=== PATIENT | female | born 1935 | race Caucasian/White ===

== ENCOUNTER → 2019-12-08 10:21 | Outpatient (CLI) | payer MEDICARE, SELFPAY ==
--- NOTE | ~2019-12-08 | XR_ITS ---
EXAMINATION: XR chest 2V 12/08/2019 10:37 INDICATION: Chest pain PROCEDURE: 2 view chest COMPARISON: Comparison to multiple prior studies sequentially, with oldest reviewed study dated 05/2009. FINDINGS: The lungs are clear. There is apical pleural thickening/scarring. The cardiomediastinal mckay houette is within normal limits. There are no pleural effusions. There is no pneumothorax suspected . IMPRESSION: 1: NO ACUTE CARDIOPULMONARY DISEASE. Reviewed, dictated and finalized at location B. OS CONSULTANT
== END ==
PROVIDERS: PCP Family Medicine; Visit Provider Family Medicine
DX: R07.89 Other chest pain (principal)
CPT/HCPCS: 71046

== ENCOUNTER 2019-12-08 10:46 | Outpatient (CLI) | payer MEDICARE, SELFPAY ==
--- NOTE | 2019-12-08 10:57 | ECG_ITS ---
Measurements Intervals [place] Rate: 64 P: 76 MI: 197 QRS: 60 QRSD: 110 T: 24 QT: 418 QTc: 432 Interpretive Statements SINUS RHYTHM INCOMPLETE RIGHT BUNDLE BRANCH BLOCK BASELINE ARTIFACT- I, II, III, AVR, V4-V6 BORDERLINE ECG Electronically Signed On 12-08-2019 11:11:20 PERFECT BINDER OPERATOR by Christian Thomas D.O.
== END 2019-12-08 10:47 | disposition home or self-care (01) ==
LOC: ANHCARD 10:50
PROVIDERS: PCP Family Medicine; Visit Provider Family Medicine
DX: R07.89 Other chest pain (principal)
CPT/HCPCS: 93005

== ENCOUNTER → 2021-08-01 10:47 | Outpatient (CLI) | payer MEDICARE, SELFPAY ==
--- NOTE | ~2021-08-01 | XR_ITS ---
EXAMINATION: XR knee RT 3V DATE: 08/01/2021 11:03 INDICATION: Right knee pain TECHNIQUE: Three views of the right knee were obtained. COMPARISON: None. FINDINGS: Alignment is normal. No fracture or osteochondral lesion. There is mild tricompartmental os teoarthritis characterized by tiny marginal osteophytes. There is calcification of the menisci. Soft tissues are unremarkable. IMPRESSION: 1. Chondrocalcinosis without acute osseous abnormality. Reviewed, dictated and finalized at location A.
== END ==
PROVIDERS: PCP Family Medicine; Visit Provider Physician Assistant
DX: M25.561 Pain in right knee (principal); M11.261 Other chondrocalcinosis, right knee
CPT/HCPCS: 73562

== ENCOUNTER 2021-08-23 09:46 | Outpatient (CLI) | payer MEDICARE, SELFPAY ==
--- NOTE | ~2021-08-23 | CT_ITS ---
EXAMINATION: CTA chest DATE: 08/23/2021 10:32 INDICATION: Atherosclerosis of aorta TECHNIQUE: Computed tomography angiography (CTA) of the chest was performed with 100 mL Omnipaque-350 intravenous contrast timed to evaluate the pulmonary arteries. Coronal maximum intensity projection 3D-reconstructions were created by the technologist. Automated exposure control and iterative reconst ruction technique were employed. Exam dose: 167.94 mGy-cm total exam DLP. COMPARISON: 12/07/2021 view chest 08/11/2018 CTA pulmonary FINDINGS: Previously reported ulceration at atherosclerotic plaque at the undersurface of the aortic arch noted on 08/11/2018 is relatively stable, not having progressed in extent since the prior examina tion. No thoracic aortic aneurysm. Normal heart size. No pericardial or pleural effusion. No hilar or mediastinal mass lesion or lymphadenopathy. There is no evidence of pulmonary embolism. There is bilateral mild apical scarring. No pulmonary infiltrate or consolidation or pulmonary mass l esion is detected. Small sliding hiatal hernia. The adrenal glands and included upper abdominal structures are unremarkable. 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 IMPRESSION: Stable small ulceration atherosclerotic plaque the undersurface of the thoracic aortic a [facility] since 08/11/2018 Reviewed, dictated and finalized at Location A. Reviewed, dictated and finalized at location A. R SHAPER IMPRESSION: Stable small ulceration atherosclerotic plaque the undersurface of the thoracic aortic arch since 08/11/2018
== END 2021-08-23 09:47 | disposition home or self-care (01) ==
PROVIDERS: PCP Family Medicine; Visit Provider Internal Medicine Cardiovascular Disease
DX: I70.0 Atherosclerosis of aorta (principal); I71.9 Aortic aneurysm of unspecified site, without rupture
CPT/HCPCS: 71275; Q9967

== ENCOUNTER 2023-01-18 16:08 | Emergency (ER) | payer MEDICARE, SELFPAY ==
--- NOTE | ~2023-01-18 | CT_ITS ---
EXAMINATION: CT brain wo con INDICATION: Transient alteration of awareness COMPARISON: 09/27/2015 TECHNIQUE: Standard unenhanced head CT. The dose-length product (DLP) was 605.33 mGy-cm. The mA was a djusted according to patient size. Iterative reconstruction technique was employed. FINDINGS: There is no acute intraparenchymal hemorrhage. No evidence of mass lesion. No evidence of a cute infarction. There is moderate periventricular and subcortical hypodensity probably related to sm all vessel ischemic disease. There is moderate prominence of the sulci and ventricles related to cere bral atrophy. Intracranial calcified cerebral atherosclerosis is noted. There are no extra-axial laureen ections. There is no mass effect or midline shift. Changes in the globes are likely from ocular lens surgery. The visualized sinuses and mastoid air cells are well aerated. IMPRESSION: 1. No acute intracranial abnormality. 2. Age related findings. Reviewed, dictated and finalized at location F.
--- NOTE | ~2023-01-18 | XR_ITS ---
EXAMINATION: XR chest 1V portable 01/18/2023 16:25 INDICATION: Cough. Nausea. PROCEDURE: AP portable chest COMPARISON: Comparison to multiple prior studies sequentially, with oldest reviewed study dated 06/2009. FINDINGS: The lungs are clear. The cardiomediastinal silhouette is within normal limits. There are no pleural effusions. There is no pneumothorax suspected. IMPRESSION: 1: NO ACUTE CARDIOPULMONARY DISEASE. Reviewed, dictated and finalized at location B.
[2023-01-18 16:09] VITALS: PULSE 97; RESP 16; TEMP 37; O2SAT 95
--- NOTE | 2023-01-18 16:14 | ECG_ITS ---
Measurements Intervals [place] Rate: 90 P: 72 AL: 160 QRS: 49 QRSD: 125 T: 22 QT: 396 QTc: 485 Interpretive Statements SINUS RHYTHM WITH OCCASIONAL SUPRAVENTRICULAR PREMATURE COMPLEXES RIGHT BUNDLE BRANCH BLOCK [120+ ms QRS DURATION, UPRIGHT V1, 40+ ms S IN I/aVL/V4/V5/V6] COMPARED TO ECG 12/08/2019 11:02:57 RIGHT BUNDLE-BRANCH BLOCK NOW PRESENT Electronically Signed On 01-19-2023 22:04:10 CDT by Sonia Martinez M.D.
[2023-01-18 16:17] VITALS: PULSE 98
[2023-01-18 16:20] VITALS: BP 142/64; PULSE 100; RESP 17; O2SAT 100
[2023-01-18 16:49] LABS: Basophils Percent Auto 0.4 % (0.2-1.2); Eosinophils Absolute Auto 0.1 K/mm3 (0-0.3); Eosinophils Percent Auto 0.9 % (0-4.4); Hematocrit 36.3 % (37.0-47.0); Hemoglobin 12.1 g/dL (12.0-15.0); Immature Granulocyte Absolute 0.02 K/mm3 (0.00-0.031); Immature Granulocyte Percent A 0.3 % (0-0.5); Lymphocytes Absolute Auto 1.37 K/mm3 (0.9-3.2); Lymphocytes Percent Auto 17.5 % (18.3-44.2); Mean Corpuscular HGB Conc 33.3 g/dl (32-36); Mean Corpuscular Hemoglobin 31.5 pg (26-34); Mean Corpuscular Volume 94.5 fl (80-100); Mean Platelet Volume 9.5 fl (7.4-10.4); Monocytes Absolute Auto 0.6 K/mm3 (0.1-0.6); Monocytes Percent Auto 7.4 % (2.6-8.5); Neutrophils Absolute Auto 5.8 K/mm3 (1.3-6.7); Neutrophils Percent Auto 73.5 % (45.5-73.1); Platelet Count Result 247 k/mm3 (150-375); Red Blood Count 3.84 M/mm3 (4.2-5.4); Red Cell Distribution Width 12.5 % (11.5-14.5); White Blood Count 7.8 K/mm3 (4.5-10.0)
[2023-01-18 17:01] LABS: Alanine Aminotransferase 25 U/L (6-35); Albumin Level 4.2 g/dL (3.5-5.1); Alkaline Phosphatase 102 U/L (38-126); Anion Gap 8 mmol/L (8-16); Aspartate Amino Transferase 29 U/L (14-36); Bilirubin,Total 0.4 mg/dL (0.2-1.3); Blood Urea Nitrogen 19 mg/dL (7-17); Calcium 8.7 mg/dL (8.4-10.2); Carbon Dioxide 29 mmol/L (22-30); Chloride 101 mmol/L (98-107); Estimated CRCL calculation 36 ml/min; Estimated Glomerular Filt Rate 59; Glucose 185 mg/dL (65-110); Lipase 81 U/L (23-300); Potassium 4.1 mmol/L (3.4-5.0); Sodium 138 mmol/L (137-145)
[2023-01-18 17:08] LABS: Appearance Urine Turbid (Clear); Bacteria Urine 4+ /hpf; Bilirubin Urine Negative (Negative); Blood Urine 2+ (Negative); Color Urine Yellow (Yellow); Glucose Urine UA Negative (Negative); Ketones Urine Negative (Negative); Leukocyte Esterase Ur 3+ LEU/UL (Negative); Need Manual Microscopic Reviewed; Nitrate Urine Positive (Negative); Protein Urine 1+ mg/dL (Negative); Specific Grav Ur 1.017 (1.001-1.035); Squamous Epithelial Cell Urine None seen /hpf (Few); Urobilinogen Urine 0.2 mg/dL (<2.0); WBC Urine >100 /hpf
[2023-01-18 17:17] LABS: Add Urine Microscopic? YES
[2023-01-18 17:26] VITALS: BP 129/55; PULSE 81; RESP 12; O2SAT 98
[2023-01-18 17:30] LABS: SARS-CoV-2 RNA PCR Negative
--- NOTE | 2023-01-18 17:55 | ED.AMS ---
HPI - Altered Mental Status General Chief Complaint: Altered Mental Status Stated Complaint: sob Time Seen by Provider: 01/18/23 17:00 History of Present Illness HPI narrative: Patient is an 87-year-old female with a history of dementia, diabetes, hypertension presenting with altered mental status. On my evaluation, the patient denies any complaints and she is asking to go home. Her son is at bedside and states that she seemed a bit confused this morning and then started coughing. EMS was called and noted that she was coughing up phlegm. She was ANO x2 on their evaluation. No vital sign abnormalities. Patient was not complaining of shortness of breath or chest pain. Currently, the patient denies any shortness of breath or chest pain. States that she feels like her normal self. Denies headache, numbness or weakness, abdominal pain, nausea or vomiting, leg swelling. Related Data Allergies Allergy/AdvReac Type Severity Reaction Status Date / Time No Known Allergies Allergy Verified 02/16/22 13:41 Review of Systems Review of Systems: All systems reviewed & are unremarkable except as noted in HPI and below PMFSH Past Medical History Medical History Anemia Anxiety Chronic renal insufficiency, stage III (moderate) Diabetes Essential hypertension Fatigue Hepatic insufficiency Hiatal hernia Insomnia, unspecified Left arm pain Memory loss Other chronic pain Sleeping difficulties SOB (shortness of breath) Vitamin D deficiency Surgical History Surgical History H/O: hysterectomy Family History Family History Sibling Hypertension Social History Social History Smoking status: Never smoker Second hand tobacco smoke exposure: No Alcohol intake: never Substance use type: marijuana Exam Narrative: GENERAL: Well-appearing, well-nourished, and in no acute distress. HEAD: Normocephalic, atraumatic. EYES: PERRLA and EOMI. ENT: Nares clear, no rhinorrhea or epistaxis. Mucous membranes moist. NECK: Supple. CHEST: Clear to auscultation. No respiratory distress. HEART: Regular rate and rhythm. No murmur heard. Normal peripheral pulses. ABDOMEN: Soft, nontender, nondistended EXTREMITIES: Normal range of motion. No edema. SKIN: Warm, dry, no rash. NEURO: No focal deficits. Alert and oriented x3. 5 out of 5 strength in all extremities PSYCH: Normal mood and affect. Course Vital Signs Vital signs: Vital Signs Temperature 98.6 F 01/18/23 16:09 Pulse Rate 97 01/18/23 16:09 Respiratory Rate 16 01/18/23 16:09 Pulse Oximetry 95 01/18/23 16:09 Temperature 98.6 F 01/18/23 16:09 Pulse Rate 82 01/18/23 20:06 Respiratory Rate 18 01/18/23 20:06 Blood Pressure 139/83 01/18/23 20:06 Pulse Oximetry 98 01/18/23 20:06 MDM - Altered Mental Status MDM Narrative Medical decision making narrative: Patient is an 87-year-old female presenting with altered mental status. Vitals are within normal limits. Exam remarkable for the above. On my evaluation, the patient is ANO x3 though she was slow to respond to year. States that she is concerned that her memory is not what it was. Her son is at bedside and states that this is not atypical for her. Patient denies any other complaints at this time. She also denies that she felt short of breath or had chest pain earlier today. EKG per my interpretation shows normal sinus rhythm, normal axis, right bundle branch block, no ST elevations or depressions. Prior EKG shows an incomplete right bundle branch block. Blood work is unremarkable. Troponin is undetectable. Chest x-ray shows no acute abnormalities. CT head shows no acute abnormalities. UA is concerning for UTI. Patient has received fluids and IV Rocephin. On reevalu
[2023-01-18] MEDS: SODIUM CHLORIDE 0.9% IV 1,000 ML 999 ML IV CONT (18:06)
[2023-01-18 18:07] VITALS: BP 131/59; PULSE 84; RESP 19; O2SAT 98
[2023-01-18 18:35] LABS: Troponin I < 0.012 ng/mL (0.000-0.034)
[2023-01-18 20:06] VITALS: BP 139/83; PULSE 82; RESP 18; O2SAT 98
== END 2023-01-18 20:07 | disposition home or self-care (01) ==
PROVIDERS: Emergency Medicine; Emergency Provider Emergency Medicine; PCP Family Medicine
DX: N39.0 Urinary tract infection, site not specified (principal); Z20.822 Contact with and (suspected) exposure to COVID-19; D64.9 Anemia, unspecified; N18.30 Chronic kidney disease, stage 3 unspecified; E11.22 Type 2 diabetes mellitus with diabetic chronic kidney disease; I12.9 Hypertensive chronic kidney disease with stage 1 through stage 4 chronic kidney disease, or unspecified chronic kidney disease; R53.83 Other fatigue; G47.00 Insomnia, unspecified; K72.90 Hepatic failure, unspecified without coma; K44.9 Diaphragmatic hernia without obstruction or gangrene; R41.3 Other amnesia; E55.9 Vitamin D deficiency, unspecified; F41.9 Anxiety disorder, unspecified; Z90.710 Acquired absence of both cervix and uterus; I45.10 Unspecified right bundle-branch block; I49.1 Atrial premature depolarization
CPT/HCPCS: 36415; 70450; 71045; 80053; 81001; 83690; 84484; 85025; 87077; 87086; 87186; 93005; 96361; 96365; 99284; J0696; J7030; U0003; U0005

== ENCOUNTER 2023-01-22 14:09 | Outpatient (CLI) | payer MEDICARE, SELFPAY ==
--- NOTE | ~2023-01-22 | US_ITS ---
US arterial ankle brachial ind INDICATION: Peripheral vascular disease TECHNIQUE: Segmental pressures and plethysmographic and Doppler waveforms of the brachial and lower e xtremity arteries were obtained. COMPARISON: None. FINDINGS: Right and left brachial artery pressures of 137 mm Hg and 145 mm Hg, respectively, are concordant (no rmal difference <= 30 mmHg). The right ankle-brachial index (TATYANA) is 1.3 (normal >= 0.9-1.0). The right great toe-brachial index ( TBI) is 0.32 (normal >= 0.60). The left TATYANA is 1.21. The left TBI is 0.36. IMPRESSION: 1. Normal bilateral ankle-brachial indices. 2: Diminished bilateral toe brachial indices, consistent with peripheral arterial disease below the ankles. Reviewed, dictated and finalized at location A. IMPRESSION: 1. Normal bilateral ankle-brachial indices. 2: Diminished bilateral toe brachial indices, consistent with peripheral arter ial disease below the ankles.
== END 2023-01-22 14:10 | disposition home or self-care (01) ==
PROVIDERS: PCP Family Medicine; Visit Provider Family Medicine
DX: R09.89 Other specified symptoms and signs involving the circulatory and respiratory systems (principal)
CPT/HCPCS: 93922

== ENCOUNTER 2025-01-11 02:45 | Emergency (ER) | payer MEDICARE, SELFPAY ==
--- NOTE | ~2025-01-11 | XR_ITS ---
Portable chest x-ray Comparison: 01/18/2023 Clinical History: Shortness of breath Findings: Lungs are clear, without focal consolidation or pleural effusion. Cardiomediastinal silho uette is stable. Bones and soft tissues are unremarkable. Impression: Normal chest. Reviewed, dictated and finalized at location . Impression: Normal chest.
[2025-01-11 02:46] VITALS: BP 157/116; PULSE 84; RESP 16; TEMP 36.7; O2SAT 100
[2025-01-11 02:51] VITALS: O2SAT 100
--- NOTE | 2025-01-11 02:55 | ECG_ITS ---
Test Date: 2025-01-11 02:55:18 Measurements Intervals [place] Rate: 83 P: 64 [place]: 140 QRS: 38 QRSD: 133 T: 42 QT: 433 QTc: 511 Interpretive Statements SINUS RHYTHM WITH OCCASIONAL SUPRAVENTRICULAR PREMATURE COMPLEXES RIGHT BUNDLE BRANCH BLOCK BASELINE ARTIFACT- I, III, AVR, AVL, AVF, V1-V2 ABNORMAL ECG No previous ECG available for comparison Electronically Signed On 01-11-2025 06:15:59 CDT by Christian Thomas D.O.
--- NOTE | 2025-01-11 02:58 | ED.SOB ---
HPI - SOB/Dyspnea General Chief Complaint: Shortness of Breath/Dyspnea Stated Complaint: sob Time Seen by Provider: 01/11/25 02:56 Source: patient, family and EMS Mode of arrival: EMS Limitations: dementia History of Present Illness HPI Narrative: Patient presents from home. They were called for SOB by patient's son. Upon arrival they found a woman in no respiratory distress but it was reported that 45min DOLL MAKER she started having CAROLA. She has had increased mucous production. She has dementia and is A&O x 2 which is her baseline. Not in any pain. Reports she is comfortable. Lives with her son. Not on O2. No underlying respiratory conditions. No edema, non smoker. Denies cough, fever, chills. 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 Chronic hepatitis C without hepatic coma Diminished pulse Hiatal hernia Anxiety Vitamin D deficiency Paresthesia of tongue Diabetes Chronic renal insufficiency, stage III (moderate) Fatigue Hepatic insufficiency Anemia Essential hypertension Insomnia, unspecified Left arm pain Other chronic pain SOB (shortness of breath) Sleeping difficulties Surgical History Surgical History H/O: hysterectomy Family History Family History Sibling Hypertension Son Alcohol abuse Social History Social History Smoking status: Never smoker Second hand tobacco smoke exposure: No Alcohol intake: never Substance use: current Substance use type: marijuana Lack of Transportation: No Lack of Food: Sometimes True Current Housing: I Have Housing Concerned About Future Housing: No Difficulty Paying Gas/Electric Bills: No Difficulty Paying for Meds: No Currently Unemployed: No Education: Master's Degree or Higher Difficulty w/ Childcare or Family Care: No Living arrangements: with family Additional living arrangements comments: son Occupation/Education: retired Gender identity (if verbalized by the patient): Female Sexual Orientation (if Verbalized by the Patient): Straight or Heterosexual Spiritual care concerns: No Agree to blood products: Yes Exam Narrative: GENERAL: Well-appearing, well-nourished, and in no acute distress. HEAD: Normocephalic, atraumatic. EYES: Non injected, non icteric ENT: Nares clear, no rhinorrhea or epistaxis. NECK: Supple. CHEST: Speaking in full sentences. No respiratory distress. Lungs clear to auscultation bilaterally HEART: Regular rate and rhythm. . ABDOMEN: Soft, nondistended. EXTREMITIES: Normal range of motion. No lower extremity edema. SKIN: Warm, dry, no rash. NEURO: No focal deficits. Alert and oriented to self. PSYCH: Normal mood and affect. Course Vital Signs Vital signs: Vital Signs Temperature 98.1 F 01/11/25 02:46 Pulse Rate 84 01/11/25 02:46 Respiratory Rate 16 01/11/25 02:46 Blood Pressure 157/116 H 01/11/25 02:46 Pulse Oximetry 100 01/11/25 02:46 Oxygen Delivery Room Air 01/11/25 02:46 Temperature 98.1 F 01/11/25 02:46 Pulse Rate 87 01/11/25 03:30 Respiratory Rate 16 01/11/25 03:30 Blood Pressure 149/93 H 01/11/25 03:30 Pulse Oximetry 99 01/11/25 03:30 Oxygen Delivery Room Air 01/11/25 02:51 MDM - SOB/Dyspnea MDM Narrative Medical decision making narrative: Patient presents to the ED via EMS. They were called by patient's son who had reported 45 min DOLL MAKER she was having CAROLA. In the ED she is afebrile with VS notable for hypertension. Patient was in no respiratory distress upon their arrival. She arrives with no complaints. DOes not know why she is here. Spoke with Son Dominic on the phone at approximately 3am who states she got up from bed and states she was having difficulty breathing when going to the bathroom and she was using the bathroom often. She stated she wanted to go to the hospital. Under a lot of stress lately. My brother has issues. She was grabbing her gut below her heart. CBC without anemia, thrombocytopenia, or leukocytosis. Patient has hyperglycemia with anion gap but no acidosis. I suspect a degree of starvation/poor nutrition is attributing to this. She also has hypokalemia which will replete with oral (patient has pulled her IV). Patient has become agitated and restless. She is out of bed wandering around the [place] demanding that we give her her phone so she can call her son. Does not know what time it is. Does not know why she is here. She can not recall her phone number or her son's phone number or her address, states she is flustered. Work up otherwise unremarkable. Stable for discharge. Lab Data Attestation: I reviewed the patient's lab results. 01/11/25 03:01 01/11/25 03:01 Labs: Lab Results 01/11/25 01/11/25 01/11/25 Range/Units 03:01 03:28 03:28 WBC 7.7 (4.5-10.0) K/mm3 RBC 4.15 L (4.2-5.4) M/mm3 Hgb 13.2 (12.0-15.0) g/dL Hct 39.1 (37.0-47.0) % MCV 94.2 (80-100) fl MCH 31.8 (26-34) pg MCHC 33.8 (32-36) g/dl RDW 12.4 (11.5-14.5) % Plt Count 251 (150-375) k/mm3 MPV 10.1 (7.4-10.4) fl Immature Gran % (Auto) 0.3 (0-0.5) % Neut % (Auto) 55.9 (45.5-73.1) % Lymph % (Auto) 32.5 (18.3-44.2) % [place] % (Auto) 9.9 H (2.6-8.5) % Eos % (Auto) 1.0 (0-4.4) % Baso % (Auto) 0.4 (0.2-1.2) % Lymph # (Auto) 2.50 (0.9-3.2) K/mm3 [place] # (Auto) 0.8 H (0.1-0.6) K/mm3 Eos # (Auto) 0.1 (0-0.3) K/mm3 Baso # (Auto) 0.0 (0.0-0.1) K/mm3 Abs Immat Gran (auto) 0.02 (0.00-0.031) K/mm3 Absolute Neuts (auto) 4.3 (1.3-6.7) K/mm3 Absolute Nucleated RBC 0.000 (0.0-0.012) K/mm3 Nucleated RBC % 0.0 (0.0-0.2) % Sodium 141 (137-145) mmol/L Potassium 3.0 L (3.4-5.0) mmol/L Chloride 103 (98-107) mmol/L Carbon Dioxide 22 (22-30) mmol/L Anion Gap 16 H (4-12) mmol/L BUN 17 (7-17) mg/dL Creatinine 0.79 (0.7-1.0) mg/dL Estim Creat Clear Calc 34 ml/min Estimated GFR > 60 (59 - ) Glucose 148 H (65-110) mg/dL Calcium 9.6 (8.4-10.2) mg/dL Magnesium 1.9 Cancelled (1.6-2.3) mg/dL Total Bilirubin 0.5 (0.2-1.3) mg/dL AST 31 (14-36) U/L ALT 30 (6-35) U/L Alkaline Phosphatase 96 (38-126) U/L Total Protein 8.0 (6.3-8.2) g/dL Albumin 4.6 (3.5-5.1) g/dL Lipase 228 (23-300) U/L Urine Color Yellow (Yellow) Urine Appearance Clear (Clear) Urine pH 6.0 (5.0-9.0) Ur Specific [place] 1.015 (1.001-1.035) Urine Protein 2+ H (Negative) mg/dL Urine Glucose (UA) Negative (Negative) mg/dL Urine Ketones Negative (Negative) mg/dL Ur Blood (Man) Negative (Negative) Urine Nitrate Negative (Negative) Urine Bilirubin Negative (Negative) Urine Urobilinogen 0.2 (<2.0) mg/dL Add Ur Microanalysis Reviewed Leukocyte Esterase Rfl Negative (Negative) CHAYITO/UL Urine RBC 0-2 (0-2) /hpf Urine WBC 0-5 (0-3) /hpf Ur Squamous Epith Cells None seen (Few) /hpf Urine Bacteria None seen /hpf Urine Casts 0-2 Influenza A (RT-PCR) Negative (Negative) Influenza B (RT-PCR) Negative (Negative) RSV (RT-PCR) Negative (Negative) SARS-CoV-2 RNA (RT-PCR) Negative (Negative) Imaging Data Attestation: I personally reviewed and interpreted this imaging study as follows: My impression: Patient has a somewhat elevated/prominent right hemidiaphragm my independent interpretation chest x-ray, will have stat rad evaluate Radiologist's impression: Chest Xray Stat Rad (results after in house read): No acute finding. Impressions Chest X-Ray 01/11/25 05:42 Impression: Normal chest. ECG Data EKG #1: Attestation: I personally reviewed and interpreted this ECG as follows: ECG completion date: 01/11/25 ECG completion time: 02:55 Prior ECG tracings: available for review (EKG from February 09, 2021 is reviewed which did have supraventricular complexes but without right bundle-branch block) Interpretation: Sinus rhythm with occasional supraventricular premature complexes at a rate of 83 beats per minute. GA interval 140. QRS 133. QT/QTC 433/473. RBBB given QRS greater [id number]; RSR' M-shaped pattern in V1-V3; wide, slurred S wave in lateral leads (I, aVL, V5-6). Discharge Plan Discharge Clinical Impression: Shortness of breath, Hypokalemia, Hyperglycemia due to diabetes mellitus, Diabetes mellitus with proteinuria Patient Disposition: Home Condition: Stable Instructions: Antibiotic Form, Hypokalemia (ED), Diabetic Hyperglycemia (ED), Shortness of Breath (ED) Additional Instructions: There was report that you had shortness of breath although you stated you had no symptoms and your workup (EKG, chest xray, viral swabs) did not reveal any cause. You had a reassuring physical exam. Your blood sugar was a little high but not dangerously so. Your potassium was a little bit low and we supplemented this. Follow-up with your primary care physician. Return to the emergency department with any new or worsening symptoms. Patient Language: Divehi Prescriptions: No Action nystatin 100,000 unit/mL suspension 5 ml PO QID Qty: 300 0RF Rx Instructions: swish and swallow for 14 days diclofenac sodium 1 % gel 2 g topical QID PRN (Reason: pain) Qty: 100 0RF Rx Instructions: apply to knee ferrous sulfate 325 mg (65 mg iron) tablet,delayed release (DR/EC) 325 mg PO DAILY Qty: 90 1RF famotidine 20 mg tablet 20 mg PO DAILY Qty: 90 0RF brexpiprazole 1 mg tablet 1 mg PO .HS Qty: 30 3RF buspirone 5 mg tablet See Rx Instructions .ROUTE .COMPLEX Qty: 60 5RF Dose Instruction: TAKE 1 TABLET BY MOUTH TWICE A DAY NEEDED FOR ANXIETY Rx Instructions: TAKE 1 TABLET BY MOUTH TWICE A DAY NEEDED FOR ANXIETY Xifaxan 550 mg tablet See Rx Instructions .ROUTE .COMPLEX Qty: 60 3RF Dose Instruction: TAKE 1 TABLET BY MOUTH TWICE DAILY Rx Instructions: TAKE 1 TABLET BY MOUTH TWICE DAILY folic acid 1 mg tablet 1 mg PO DAILY Qty: 90 3RF Fetzima 40 mg capsule,extended release 24 hr See Rx Instructions .ROUTE .COMPLEX Qty: 30 4RF Dose Instruction: TAKE 1 CAPSULE BY MOUTH EVERY DAY Rx Instructions: TAKE 1 CAPSULE BY MOUTH EVERY DAY ergocalciferol (vitamin D2) [Vitamin D2] 1,250 mcg (50,000 unit) capsule 50,000 unit PO WEEKLY Qty: 14 1RF thiamine HCl (vitamin B1) 100 mg tablet 100 mg PO DAILY Qty: 90 3RF Fetzima 40 mg capsule,extended release 24 hr See Rx Instructions .ROUTE .COMPLEX Qty: 30 4RF Dose Instruction: TAKE 1 CAPSULE BY MOUTH EVERY DAY Rx Instructions: TAKE 1 CAPSULE BY MOUTH EVERY DAY pantoprazole 40 mg tablet,delayed release (DR/EC) See Rx Instructions .ROUTE .COMPLEX Qty: 90 1RF Dose Instruction: TAKE 1 TABLET BY MOUTH EVERY DAY IN THE MORNING Rx Instructions: TAKE 1 TABLET BY MOUTH EVERY DAY IN THE MORNING amlodipine 5 mg tablet See Rx Instructions .ROUTE .COMPLEX Qty: 90 1RF Dose Instruction: TAKE 1 TABLET BY MOUTH EVERY DAY Rx Instructions: TAKE 1 TABLET BY MOUTH EVERY DAY pravastatin 20 mg tablet See Rx Instructions .ROUTE .COMPLEX Qty: 90 2RF Dose Instruction: TAKE 1 TABLET BY MOUTH DAILY Rx Instructions: TAKE 1 TABLET BY MOUTH DAILY Belsomra 5 mg tablet 5 mg PO QHS Qty: 90 1RF metformin 500 mg tablet 500 mg PO DAILY Qty: 90 1RF donepezil [Aricept] 10 mg tablet 10 mg PO QHS Qty: 90 1RF Follow-up/Referrals: Louisa Dutta MD [Primary Care Provider] - Time of Disposition: 04:19
--- OUTSIDE RECORDS SUMMARY | 2025-01-11 02:59 | XMS_ITS | Clinical Summary ---
Author Organization [facility] Address [address] [place] [address] Care Team Providers Care Police And Fire Dispatcher Name Role Phone Akbar Reynolds MD Primary Care Provider [phone] Allergies No known active allergies Medications pantoprazole DR (PROTONIX) 40 mg EC tablet Take 1 tablet (40 mg total) by mouth daily Active traMADol (ULTRAM) 50 mg tablet Take 1 tablet (50 mg total) by mouth every 6 (six) hours as needed for pain Active vit D3-folic [id number] 2,000-800-0.32 unit-mcg-mg tablet Take by mouth. Active gabapentin (NEURONTIN) 300 mg capsule Take 1 capsule (300 mg total) by mouth nightly 0 07/21/2018 Active rifAXIMin (XIFAXAN) 550 mg tablet Take 1 tablet (550 mg total) by mouth 2 (two) times a day 06/17/2018 Active FETZIMA 40 mg capsule,extende d release 24 hrIndications:m ajor depressive disorder Take 1 capsule (40 mg total) by mouth daily 5 06/25/2018 Active ferrous sulfate 325 mg (65 mg of elemental iron) tabletIndicatio ns:Iron Deficiency Anemia Take 1 tablet (325 mg total) by mouth daily 6 06/27/2018 Active carvedilol (COREG) 25 mg tabletIndicatio ns:Hypertensive emergency, no CHF Take 1 tablet (25 mg total) by mouth 2 (two) times a day with meals. 60 tablet 08/17/2018 Active amLODIPine (NORVASC) 5 mg tabletIndicatio ns:Hypertensive emergency, no CHF Take 1 tablet (5 mg total) by mouth daily. 30 tablet 08/18/2018 Active Bifidobacterium infantis (Align) 4 mg capsule Take 1 capsule (4 mg total) by mouth daily Active cholecalciferol (Vitamin D3) 2000 unit capsule as directed Active donepeziL (ARICEPT) 10 mg tablet 06/15/2024 Active escitalopram (LEXAPRO) 20 mg tablet daily 10/14/2015 Active levalbuterol (XOPENEX HFA) 45 mcg/actuation inhaler Inhale 2 puffs every 6 (six) hours as needed Active lisinopriL (PRINIVIL,ZESTR IL) 20 mg tablet 10/10/2017 Active lisinopriL (PRINIVIL,ZESTR IL) 30 mg tablet Active meloxicam (MOBIC) 7.5 mg tablet Take 1 tablet (7.5 mg total) by mouth daily Active metFORMIN (GLUCOPHAGE) 500 mg tablet 08/05/2024 Activ e pravastatin (PRAVACHOL) 20 mg tablet 07/15/2024 Active rivastigmine (EXELON) 1.5 mg capsule Take 1 capsule (1.5 mg total) by mouth 2 (two) times a day Active Belsomra 5 mg tablet 07/16/2024 Active albuterol HFA (PROVENTIL HFA,VENTOLIN HFA,PROAIR HFA) 90 mcg/actuation inhaler Inhale 2 puffs every 6 (six) hours as needed for wheezing 3 each 4 08/08/2024 08/08/20 25 Active inhalational spacing device (Aerochamber MV) spacer 1 Device every 4 (four) hours as needed (prn) 1 each 08/08/2024 Active Active Problems Problem Noted Date Diagnosed Date Alcoholic cirrhosis of liver without ascites Aortic atherosclerosis 08/11/2018 Assessment & Plan (08/15/2018 8:47 AM AUDITOR TAX): OSH CTA significant for inferolateral Ao Arch ulceration with plaque. CTA yeterday revealed stable ulceration of atherosclerotic plaque along inferior wall of the aortic arch; no dissection. - Goal SBP <130, HR <100 - Continue Coreg 25 mg PO BID and Norvasc 5 mg PO Daily. Assessment & Plan (08/15/2018 2:22 AM AUDITOR TAX): OSH CTA significant for inferolateral Ao Arch ulceration with plaque. CTA yeterday revealed stable ulceration of atherosclerotic plaque along inferior wall of the aortic arch; no dissection. - Will normalize BP and HR goals in light of no dissection. Goal SBP <160, HR <100 - Continue Coreg 25 mg PO BID and Norvasc 5 mg PO Daily. Assessment & Plan (08/14/2018 9:00 AM AUDITOR TAX): OSH CTA significant for inferolateral Ao Arch ulceration with plaque. CTA today revealed stable ulceration of atherosclerotic plaque along inferior wall of the aortic arch; no dissection. Remains off nicardipine and esmolol gtts. - Continue medical management. - Coreg 25 mg PO BID scheduled - Norvasc 5 mg PO Daily - Goal SBP <120, HR <80 - D/C james Assessment & Plan (08/14/2018 5:26 AM AUDITOR TAX): OSH CTA significant for inferolateral Ao Arch ulceration with plaque. CTA today revealed stable ulceration of atherosclerotic plaque along inferior wall of the aortic arch; no dissection. Remains off nicardipine and esmolol gtts. - continue medical management. - Coreg 25 mg PO BID scheduled - Norvasc 5 mg PO Daily - Goal SBP <120, HR <80 Assessment & Plan (08/13/2018 9:21 AM AUDITOR TAX): OSH CTA significant for inferolateral Ao Arch ulceration with plaque. Weaned off nicardipine and esmolol infusions overnight. - Coreg 25 mg PO BID scheduled - Norvasc 5 mg PO Daily - Repeat CTA today - SBP <120, HR <80 Assessment & Plan (08/13/2018 12:14 AM AUDITOR TAX): OSH CTA significant for Inferolateral Ao Arch ulceration with plaque. - Esmolol gtt for HR goal 60-70 - Nicardipine gtt for SBP goal < 120 - Coreg 25 mg PO BID scheduled - Norvasc 5 mg PO Daily initiated overnight. - Plan is for repeat CTA with runoff in AM (To be ordered by vascular surgery.) -Hold home Lisinopril d/t previous contrast load and plan for additional contrast in AM Assessment & Plan (08/12/2018 7:47 PM AUDITOR TAX): Presented to OSH with CP and SOB. OSH CT read notable for Inferolateral Ao Arch ulceration with plaque and pt tx to [facility] for surgical eval. -esmolol gtt for HR goal 60-70 -nicardipine gtt for SBP goal < 120 -Advance diet as tolerated, no surgical intervention required at this time -repeat CTA of aorta tomorrow (to be ordered by vascular surgery) -holding home lisinopril at this time d/t previous contrast load and plan for contrast exposure tomorrow -initiate coreg 12.5mg BID and wean gtt to achieve above BP and HR parameters Additional care: Nicard and Esmolol gtt increased this afternoon despite coreg. Coreg 12.5mg x1 now and increase to 25mg BID. Assessment & Plan (08/12/2018 12:58 AM AUDITOR TAX): Presented to OSH with CP and SOB. OSH CT read notable for Inferolateral Ao Arch ulceration with plaque and pt tx to [facility] for surgical eval. Arrives on no gtts with SBP 200s via NIBP. Pain free. Bilat radial pulses +2, Bilat pedal pulses +1. -Notify Vascular sx pt has arrived -place Right radial A-line -ensure [facility] radiology dept over reads OSH CT -esmolol gtt for HR goal 60-70 -nicardipine gtt for SBP goal < 120 -EKG on admit -NPO for now until plan confirmed with vascular surgery Memory impairment 11/29/2015 Overview (08/12/2018): Referred to Dr Foreign Hicks with [facility] 2yrs ago by PCP for memory impairment. At that time, it was suspected that she may have early-stage Alzheimer's Disease, though her depression/anxiety likely play a role in her symptoms. She takes SSRI and BZD for depression and anxiety. Dr Rocky Love with psychiatry has evaluated this pt's depression/axiety. It appears per EMR pt has taken TCA, SSRI, BDZ, and Aricept in the past. Currently pt taking tramadol, fetzima, and xanax. Assessment & Plan (08/15/2018 8:46 AM AUDITOR TAX): Hx of pre-Alzheimer's and anxiety. Noncontrast head CT without acute intracranial abnormality. No agitation or confusion currently. - Continue Rifaximin for cirrhosis 2/2 Hep C. - Xanax 0.5mg QHS PRN. On home Xanax 1mg qHS. Assessment & Plan (08/15/2018 2:31 AM AUDITOR TAX): Hx of pre-Alzheimer's and anxiety. Noncontrast head CT without acute intracranial abnormality. No agitation or confusion tonight. - continue Rifaximin for cirrhosis 2/2 Hep C. Will consider decreasing dose from bid to daily. - Xanax 0.5mg QHS PRN. On home Xanax 1mg qHS. Pt c/o dizziness overnight. Consider lowering dose if dizziness persist. Assessment & Plan (08/14/2018 8:59 AM AUDITOR TAX): Hx of pre-Alzheimer's and anxiety. Noncontrast head CT without acute intracranial abnormality. No agitation or confusion overnight. - Rifaximin for cirrhosis 2/2 Hep C. Ammonia level normal on admission. - Xanax 0.5mg QHS PRN Assessment & Plan (08/14/2018 12:29 AM AUDITOR TAX): Hx of pre-Alzheimer's and anxiety. Noncontrast head CT without acute intracranial abnormality. No agitation or confusion appreciated overnight. - Rifaximin for cirrhosis 2/2 Hep C. Ammonia level normal on admission. - Xanax 0.5mg QHS PRN Assessment & Plan (08/13/2018 9:23 AM AUDITOR TAX): Hx of pre-Alzheimer's. Likely hyperactive delirium on top of baseline dementia as family reports behavior much worse than baseline. Also with history of anxiety (on home Xanax 1mg PO qHS). UA negative for infection overnight. Remains confused this morning. - Rifaximin for cirrhosis 2/2 Hep C. Ammonia level normal on admission. - Xanax 0.5mg QHS PRN - Frequent reorientation - OOBTC during the day, lights on during the day - Noncon HCT today to r/o other causes of altered mental status Assessment & Plan (08/13/2018 4:15 AM AUDITOR TAX): Hx of pre-Alzheimer's. Likely hyperactive delirium on top of baseline dementia as family reports behavior much worse than baseline. Also with history of anxiety (on home Xanax 1mg PO qHS). - Rifaximin for cirrhosis 2/2 Hep C. Ammonia level normal on admission. Will increase dose to bid from daily after verification of home med dosing. - haldol 1 mg now for increased agitation and combativeness. - xanax 0,.25 mg x 1 now. Possible agitation secondary to withdrawal? - Frequent reorientation Additional Care: 20:59 pt combative. Haldol 2mg IV ONCE and home gabapentin restarted. 22:20 Pt agitation continues. She has pulled out both her IVs. PIV placed and precedex gtt initiated. UA with micro sent for possible UTI that may be contributing to delirium. 23:10 Precedex gtt maximized due to uncontrolled agitation. Xanax 0.5 mg PO ONCE. 23:30 Pt resting comfortably in bed. 0100: Nicardipine weaned to off. Pt now bradycardic in 50's with borderline low BP. Will wean precedex. 0130: Esmolol weaned to off. HR and BP improved with precedex down to 0.5. Pt awake and alert. Will give additional xanax 0.5 now. 0235: Precedex weaned to off. Pt resting comfortably with stable hemodynamics. 0300: UA negative for infection Assessment & Plan (08/12/2018 7:42 PM AUDITOR TAX): Pt endorses frequent forgetfulness. States she lives with her son. Forgets to take medications. Pt also states her depression has been worse over the past 2 weeks. Ammonia checked overnight normal. Pt disoriented. Redirectable -rifaximin for liver cirrhosis 2/2 Hep C -frequent reorientation -f/u with social work regarding pt's home needs being met Assessment & Plan (08/12/2018 1:36 AM AUDITOR TAX): Pt endorses frequent forgetfulness. States she lives with her son. Forgets to take medications. Pt also states he depression has been worse over the past 2 weeks -check ammonia level with AML as pt takes rifaximin for liver cirrhosis 2/2 Hep C -f/u with social work regarding pt's home needs being met Resolved Problems Problem Noted Date Diagnosed Date Resolved Date Dizziness 08/15/2018 08/15/2018 Assessment & Plan (08/15/2018 2:25 AM AUDITOR TAX): Pt c/o dizziness this evening and reports that she also noticed on and off dizziness during the day today. Denies CP, nausea, vomiting, and syncope. May be medication related. Xanax, gabapentin, rifaximin can all cause dizziness. -discuss decreasing medication dosing with icu team in am Hypertensive emergency, no CHF 08/12/2018 08/13/2018 Assessment & Plan (08/13/2018 12:24 AM AUDITOR TAX): Hx of HTN on home lisinopril. -Nicardipine gtt for SBP goal < 120 - Coreg 25 mg PO BID scheduled - Norvasc 5 mg PO Daily initiated overnight. Increase dosage as clinically indicated. Assessment & Plan (08/12/2018 1:37 AM AUDITOR TAX): States SBP typically 160s. Reported to have received 20mg IVP labetelol at OSH X2. Arrived with SBP 200s via NIBP. Pt states he lisinopril was recently increased by PCP Dr Louisa Dutta in [place], [place]; however, she recently ran out of medication and has not taken her lisinopril for a couple of days. Endorses GRIMES, blurry vision, nausea and decreased appetite over the past 2 days. -place 2 large bore PIV now -labetelol 20mg IVP now -start nicardipine gtt for SBP goal < 120 Hypokalemia 08/12/2018 08/13/2018 Assessment & Plan (08/12/2018 3:09 AM AUDITOR TAX): K 3.2 on admit. Likely 2/2 fluid loss -> Reported to have several emesis episodes today. Endorses decreased appetite for the past 3d. BM X 4 today -40meq PO KCl now Nausea & vomiting 08/12/2018 08/13/2018 Assessment & Plan (08/12/2018 7:40 PM AUDITOR TAX): Intermittent nausea and vomiting. -zofran PRN -avoid compazine and phenergan d/t dementia/delirium -check lactate to r/o ischemic bowel Additional care: lactate normal Acute pain 08/11/2018 08/13/2018 Assessment & Plan (08/12/2018 7:38 PM AUDITOR TAX): Denies pain at this time -if pt develops pain, ensure BP control and notify vascular surgery Assessment & Plan (08/12/2018 12:59 AM AUDITOR TAX): Denies pain at this time -if pt develops pain, ensure BP control and notify vascular surgery Surgical History Surgery Date Site/Laterality Comments LAPAROSCOPIC TOTAL HYSTERECTOMY COLONOSCOPY APPENDECTOMY ESOPHAGOGASTRODUODENOSCOPY 10/07/2014 - 11/06/2014 CARDIAC CATHETERIZATION 2012 Medical History Medical History Date Comments Depression Depression Hypertension Hypertension Hx Other Medical Myocardial brid ge OM Hepatitis C virus infection Hepa titis C - not currently active Uterine cancer (HCC) History of transfusion Dysphagia Gastric antral vascular ectasia EGD 10/2014 Myocardial bridge of OM, noted o n LHC 2012 Diverticulitis Hiatal hernia Major depressive disorder GAVE (gastric antral vascular ectasia) Alcoholic cirrhosis of liver (HCC) DM (diabetes mellitus) (HCC) Social History Tobacco Use Types Packs/Day Years Used Date Smoking Tobacco: Never Smokeless Tobacco: Never Alcohol Use Standard Drinks/Week Comments No 0 (1 standard drink = 0.6 oz pur e alcohol) Comments Unknown Sex and Gender Information Value Date Recorded Sex Assigned at Not on file Legal Sex Female 11:56 PM AUDITOR TAX Gender Identity Not on file Sexual Orientation Not on file Obstetrics History Last Filed Vital Signs Vital Sign Reading Time Taken Comments Blood Pressure 167/80 08/08/2024 2:52 PM CDT Pulse 100 08/08/2024 2:52 PM CDT Temperature 36.8 C (98.2 F) 08/08/2024 2:52 PM CDT Respiratory Rate 18 08/08/2024 2:52 PM CDT Oxygen Saturation 96% 08/08/2024 2:52 PM CDT Inhaled Oxygen Concentration - - Weight 61.2 kg (135 lb) 08/08/2024 2:52 PM CDT Height 157.5 cm (5' 2 ) 08/08/2024 2:52 PM CDT Body Mass Index 24.69 08/08/2024 2:52 PM CDT Plan of Treatment Health Maintenance Due Date Last Done Comments Depression Screening 1936 Fall Risk Assessment 1936 DTaP/Tdap/Td Vaccine (1 - Tdap) 12/24/1947 Hepatitis B Screening 1954 Zoster Vaccine (1 of 2) 1986 Well Visit 65+ 2001 Pneumococcal vaccine 65+ (2 of 2 - PPSV23) 10/13/2018 08/18/2018 Covid-19 Vaccine (5 2023-2 5 season) 2024 07/05/2023, 07/08/2022, 09/01/2021, Additional history exists Influenza Vaccine (Season Ended) 2025 07/05/2023, 07/08/2022, 07/31/2021, Additional history exists Insurance [facility] MEDICARE AARP Member Subscriber Plan / Payer (Ef fective 2017-Present) Name:Su Billy Relation to Subscriber:Self Name:SU BILLY Payer ID:[id number] Group ID:[id number] Type:COMMERCIAL Address: [address] [place] [phone] [facility] [facility] H[facility] Advance Directives For more information, please contact: [phone] * Full Code (Latest Code Status on File) Date Activated Date Inactivated Comments 08/11/2018 9:14 PM 08/17/2018 5:52 PM * Full Code Date Activated Date Inactivated Comments 01/15/2018 1:47 PM 01/15/2018 7:31 PM Care Teams Police And Fire Dispatcher Relationship Specialty [place] [id number] [facility] [address] [place] [address] [facility] - General 08/13/18
--- OUTSIDE RECORDS SUMMARY | 2025-01-11 02:59 | XMS_ITS | Continuity of Care Document ---
Author Organization [facility] Address [address] [facility] [address] [place] [address] Phone Care Team Providers Care Shipping Agent Name Role Phone Fatoumata Guy Unavailable Unavailable Procedures Procedure Date Post-op Follow-up Visit Post-op Follow-up Visit Remove Cataract, Insert Lens Post-op Follow-up Visit [facility]OL[facility]-Professional Post-op Follow-up Visit Post-op Follow-up Visit Remove Cataract, Insert Lens,Comanaged J Eye Exam & Treatment [facility] Advance Directives Directive Yes / No Effective Date File Name No Information Encounters Encounter Description Practice Location Reason(s) For Visit Diagnoses Date Provider Providers Copied on Encounter [facility], [address] [place] [address] [address], [place], [place], [id number], tel:[phone] [facility] No Information Mar-0 9-200 7 Malena Ham. [address] , [address], [place], [address], [place]. tel:[phone] Referring Provider: Yaya Lin OD, [address] [place], [address]. tel:[phone] [facility], [address], [place], [place], [id number], tel:[phone] [facility] No Information Mar-0 1-200 7 Cuellar OD Bebeto. [address] , [address], [place], [place], [facility], [place]. tel:[phone] [facility], [address] [place] [address] [address], [place], [place], [id number], tel:[phone] [facility] No Information 8-200 7 Malena Ham. [address] , [address], [place], [place], [facility], . tel:[phone] Referring Provider: Yaya Lin OD, [address] [place] [address], [address]. tel:[phone] [facility], [address] [place] [address] [address], [place], [place], [id number], tel:[phone] [facility] No Information -200 7 Malena Ham. [facility] [facility] , [address], [place], [place], [facility], . tel:[phone] Referring Provider: Yaya Lin OD, [address] [place] [address], [address]. tel:[phone] [facility], [address] [place] [address] [address], [place], [place], [id number], tel:[phone] [facility] No Information 2 7 Malena Ham. [facility] , [address], [place], [place], [facility], . tel:[phone] Referring Provider: Yaya Lin OD, [address] [place] [address], [address]. tel:[phone] [facility], [address] [place] [address] [address], [place], [place], [id number], tel:[phone] [facility] No Information 4-200 7 Cuellar OD Bebeto. [address] [facility] , [address], [place], [place], [facility], [place]. tel:[phone] Referring Provider: Fatoumata Fowler, [address], [place], [address]. tel:[phone] [facility], [address], [place], [place], [id number], tel:[phone] [facility] No Information 0 3-200 7 Malena Ham. [address] [facility] [address] , [address], [place], [address], [place]. tel:[phone] Referring Provider: Yaya Lin OD, [address] [place] [address], [address]. tel:[phone] [facility], [address], [place], [place], [address], tel:[phone] [facility] No Information 2 2200 6 Malena Ham. [address] [facility] , [address], [place], [address], . tel:[phone] Referring Provider: Yaya Lin OD, [address] [place] [address], [address]. tel:[phone] Family History Family Member Type Diagnosis Age At Onset No Information Payers Payer name Insurance type Covered green party ID Authoriza tion(s) No Information Social History Type Description Quantity Date Captured Comments Sex Female Smoking Status No Information Chief Complaint And Reason For Visit No Information Reason For Referral Reason For Referral No Information History Of Present Illness Encounter Date Complaint History Of Prese nt Illness No Information Functional Status Date Functional Assessmen t No Information Instructions Date Instruction Additional Infor mation No Information Assessments Type Assessment Date No Information Patient Care Teams Name Effective Dates (start - stop) Status Members No Information
--- OUTSIDE RECORDS SUMMARY | 2025-01-11 03:00 | XMS_ITS | Continuity of Care Document ---
Author Organization [facility] Address [address] [place] [address] Phone Care Team Providers Care Lawnmower Mechanic Name Role Phone Vasquez Jacinto MD Unavailable Unavailable Allergies, Adverse Reactions, Alerts Substance Reaction Status Criticality No Known Allergies Active No Inform ation Medications Medication Instructions Dosage Effective Dates (start - stop) Status Comments pantoprazole 40 mg tablet,delayed release take 1 tablet by oral route every day 40 MG - Active Citrucel 500 mg tablet - Active Probiotic Acidophilus Beads 2 billion cell capsule - Active montelukast 10 mg tablet take 1 tablet by oral route every day in the evening 10 MG - Active alprazolam 0.5 mg tablet take 0.5 tablet by oral route every bedtime as needed 0.25 MG - Active escitalopram 20 mg tablet take 1 tablet by oral route every day 20 MG - Active Aspir-81 81 mg tablet,delayed release take 1 tablet by oral route every day - Active tramadol 50 mg tablet take 1 - 2 tablet by oral route every 4 - 6 hours as needed not to exceed 8 tablets per 24hrs 50 MG - Active Advance Directives Directive Yes / No Effective Date File Name No Information Encounters Encounter Description Practice Location Reason(s) For Visit Diagnoses Date Provider Providers Copied on Encounter [facility], [address], [place], [place], [id number] , [place] tel: [phone] [facility] No Information 8 Ophelia Ovalle. [address], [address], [place], [address], [place]. tel: [phone] [facility], [address], [place], [place], [id number] , [place] tel: [phone] [facility] Pancreatic cyst Dec- 8 Maganty Vasquez. [address], [address], [place], [address], [place]. tel: [phone] [facility], [address], [place], [place], [id number] , tel: [phone] [facility] Pancreatic cyst Dec-0 8 Maganty Vasquez. [address], [address], [place], [place], [facility], [place]. tel: [phone] [facility], [address], [place], [place], [id number] , tel: [phone] [facility] Alcoholic cirrhosis of liver with ascites 6 Gail Webber. [address], [place], [place], [facility], [place]. tel: [phone] [facility], [address], [place], [place], [address] [place] [address] , tel: [phone] [facility] Unspecified cirrhosis of liverHistory of colonic polypsBelchingFami ly history of colon cancerOther dysphagia 6 Gail Webber. [address], [place], [address], [place]. tel: [phone] [facility], [address], [place], [place], [id number] , tel: [phone] [facility] Hepatic cirrhosis, unspecified hepatic cirrhosis typeHistory of hepatitis COther dysphagiaHistory of adenomatous polyp of colonFamily history of colon cancerBelching 6 Gail Webber. [address], [place], [address], [place]. tel: [phone] Referring Provider: Louisa Dutta, [address] [place], [address]. tel:[phone] [facility], [address], [place], [place], [address] , [place] tel: [phone] [facility] Cirrhosis, nonalcoholicWeight loss 5 Gail Webber. [address], [place], [place], [facility], . tel: [phone] [facility], [address], [place], [place], [id number] , tel: [phone] [facility] Cirrhosis 5 Gail Webber. [address], [place], [place], [facility], . tel: [phone] [facility], [address], [place], [place], [address] [place] [address] , tel: [phone] [facility] Hepatitis C, chronicCirrhosis, nonalcoholicDyspha giaWeight lossHistory of adenomatous polyp of colonFamily history of colon cancer [address], [place], [place], [facility], . tel: [phone] Referring Provider: Akbar Kraft, [address], [place], [place], [facility]. tel:[phone] [facility], [address], [place], [address] [place] [address] , tel: [phone] [facility] FatigueHepatitis C [address] G[address]. [address], [place], [place], [facility], . tel: [phone] Referring Provider: Louisa Dutta, [address] [place], [address]. tel:[phone] Family History Family Member Type Diagnosis Age At Onset Father Problem (finding) cancer of colon (Cause Of ) Mother Problem (finding) Sepsis (Cause Of ) 34 Father Problem (finding) hypertension Son Problem (finding) hypertension Payers Payer name Insurance type Covered constitution party ID Authorcoreena asaf(s) MEDICARE [id number] Social History Type Description Quantity Date Captured Comments Alcohol Use Details Unknown Caffeine Use Details Unknown Tobacco Use Status No Information Smoking Status No Information Sex Female Chief Complaint And Reason For Visit No [...]
--- OUTSIDE RECORDS SUMMARY | 2025-01-11 03:00 | XMS_ITS | Encounter Summary ---
Author Organization [facility] Address [address] [place] [address] Phone Care Team Providers Care Admitting Interviewer Name Role Phone Akbar Reynolds MD Primary Care Provider [phone] Akbar Reynolds MD Primary Care Provider [phone] Akbar Reynolds MD Primary Care Provider [phone] Akbar Reynolds MD Primary Care Provider [phone] Encounter Details Date Type Department Care Team (Late st Contact Info) Description 10/23/2017 Orders Only [facility] ProviderChris MD [address] [place] [address] Social History Tobacco Use Types Packs/Day Years Used Date Smoking Tobacco: Never Assessed Alcohol Use Standard Drinks/Week Comments No 0 (1 standard drink = 0.6 oz pur e alcohol) Comments Unknown Sex and Gender Information Value Date Recorded Sex Assigned at Not on file Legal Sex Female 11:56 PM FLOOR POLISHER Gender Identity Not on file Sexual Orientation Not on file documented as of this encounter Plan of Treatment Not on file documented as of this encounter Procedures Procedure Name Priority Date/Time Associated Diagnosis Comments DISCHARGE LABORATORY CUMULATIVE REPORT 10/23/2017 12:00 AM FLOOR POLISHER documented in this encounter Results * DISCHARGE LABORATORY CUMULATIVE REPORT (10/23/2017 12:00 AM FLOOR POLISHER) Narrative 10/23/2017 12:00 AM FLOOR POLISHER Ordered by an unspecified provider. Historical Provider LAB BLOOD ORDERABLES Christianne l Result documented in this encounter Visit Diagnoses Not on filedocumented in this encounter Care Teams Admitting Interviewer Relationship Specialty [place] [address] [address] [address] [id number] PCP - General 10/23/17 01/14/18 [place] [address] [address] [address] [id number] PCP - General 01/15/18 08/11/18 [place] [address] [address] PCP - General 08/13/18 [place] [address] [address] PCP - General 08/12/18 08/12/18 documented as of this encounter
--- OUTSIDE RECORDS SUMMARY | 2025-01-11 03:00 | XMS_ITS | Clinical Summary ---
Author Organization [facility] Address [address] [address] Phone Care Team Providers Care Paper Counter Name Role Phone Louisa Dutta MD Primary Care Provider [phone] Allergies No known active allergies Medications Probiotic Product (ALIGN) 4 MG Capsule Take 4 mg by mouth daily. Active levalbuterol (XOPENEX HFA) 45 MCG/ACT Aerosol take 2 Puffs by inhalation every 6 hours as needed for Wheezing. Active mometasone (NASONEX) 50 MCG/ACT Suspension 2 Sprays by Nasal route daily. Use in each nostril as directed. Active meloxicam (MOBIC) 7.5 MG Tablet Take 7.5 mg by mouth daily. Active rivastigmine (EXELON) 1.5 MG Capsule Take 1.5 mg by mouth 2 times daily. Active escitalopram (LEXAPRO) 20 MG Tablet Take 20 mg by mouth daily. Active ALPRAZolam (XANAX) 1 MG Tablet Take 1 mg by mouth 3 times daily as needed. Active pantoprazole (PROTONIX) 40 MG Pack 40 mg by Per NG tube route daily. Active traMADol (ULTRAM) 50 MG Tablet Take 50 mg by mouth every 6 hours as needed for Pain. Active Ergocalciferol (VITAMIN D2 PO) Take 50,000 Units by mouth once a week. Active lisinopril (PRINIVIL, ZESTRIL) 20 MG Tablet 1 8 Active aspirin 20.25 MG Chewable Tablet Take 81 mg by mouth daily. Active polyethylene glycol (GLYCOLAX) Powder Use entire bottle of 255 grams of miralax for Colon prep as directed by office. 255 g 8 Active polyethylene glycol (MIRALAX) Powder Please use entire 255 gram for colonoscopy prep as directed by office. 1 Bottle 8 Active XIFAXAN 550 MG Tablet TAKE 1 TABLET BY MOUTH 2 TIMES DAILY 60 Tab 2 8 Active Active Problems Problem Noted Date Diagnosed Date Alcoholic cirrhosis of liver without ascites Family History Medical History Relation Name Comments Heart Disease Father Other-comment Mother Sepsis Relation Name Status Comments Father Mother Social History Tobacco Use Types Packs/Day Years Used Date Smoking Tobacco: Never Smokeless Tobacco: Never Tobacco Cessation:Counseling Given: Yes Comments No Sex and Gender Information Value Date Recorded Sex Assigned at Not on file Legal Sex Female 8:00 AM CDT Gender Identity Not on file Sexual Orientation Not on file Last Filed Vital Signs Vital Sign Reading Time Taken Comments Blood Pressure 122/74 10/17/2017 1:39 PM READING INTERVENTION TEACHER Pulse 62 10/17/2017 1:39 PM READING INTERVENTION TEACHER Temperature 37.3 C (99.1 F) 10/17/2017 1:39 PM READING INTERVENTION TEACHER Respiratory Rate 18 10/17/2017 1:39 PM READING INTERVENTION TEACHER Oxygen Saturation 96% 10/17/2017 1:39 PM READING INTERVENTION TEACHER Inhaled Oxygen Concentration - - Weight 52.5 kg (115 lb 12.8 oz) 10/17/2017 1:39 PM READING INTERVENTION TEACHER Height 157.5 cm (5' 2 ) 10/17/2017 1:39 PM READING INTERVENTION TEACHER Body Mass Index 21.18 10/17/2017 1:39 PM READING INTERVENTION TEACHER Plan of Treatment Health Maintenance Due Date Last Done Comments TdaP Immunization 1936 Pneumococcal Immunization (5 0+ years) (1 of 2 - PCV) 12/24/1955 Zoster Immunization (1 of 2) 1986 Hepatitis B Immunization (1 of 3 - Risk 3-dose series) 1996 Respiratory Syncytial Virus (RSV) Immunization (Adult) (1 - 1-dose 75+ series) 12/24/2011 Influenza Immunization (#1) 2024 SARS-COV-2 Immunization ( - 2023- season) 2024 Meningococcal Immunization (ACWY) Aged Out No longer eligible based on patient's age to complete this topic Rotavirus Immunization Aged Out No lo nger eligible based on patient's age to complete this topic Insurance MEDICARE [facility] Care Teams Paper Counter Relationship Specialty Start Date End Date Louisa Dutta MD [address] [place] [address] PCP - General Family Medicine 12/31/16
--- OUTSIDE RECORDS SUMMARY | 2025-01-11 03:00 | XMS_ITS | Referral Summary ---
Author Organization [facility] Address [address] [place] [address] Care Team Providers Care Motorcycle Repairer Name Role Phone Akbar [place] MD Primary Care Provider [phone] Allergies No known active allergies Medications pantoprazole DR (PROTONIX) 40 mg EC tablet Take 1 tablet (40 mg total) by mouth daily Active traMADol (ULTRAM) 50 mg tablet Take 1 tablet (50 mg total) by mouth every 6 (six) hours as needed for pain Active vit D3-folic qzze-O1-H1-B12 2,000-800-0.32 unit-mcg-mg tablet Take by mouth. Active [...] 08/11/2018 Assessment & Plan (08/15/2018 8:47 AM VEGETABLE HARVEST WORKER): OSH CTA significant for inferolateral Ao Arch ulceration with plaque. CTA yeterday revealed stable ulceration of atherosclerotic plaque along inferior wall of the aortic arch; no dissection. - Goal SBP <130, HR <100 - Continue Coreg 25 mg PO BID and Norvasc 5 mg PO Daily. 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 CTA yeterday revealed stable ulceration of atherosclerotic plaque along inferior wall of the aortic arch; no dissection. - Will normalize BP and HR goals in light of no dissection. Goal SBP <160, HR <100 - Continue Coreg 25 mg PO BID and Norvasc 5 mg PO Daily. 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 CTA today revealed stable ulceration of atherosclerotic plaque along inferior wall of the aortic arch; no dissection. Remains off nicardipine and esmolol gtts. - continue medical management. 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 Weaned off nicardipine and esmolol infusions overnight. - Coreg 25 mg PO BID scheduled - Norvasc 5 mg PO Daily - Repeat CTA today - SBP <120, HR <80 Assessment & Plan (08/13/2018 12:14 AM VEGETABLE HARVEST WORKER): OSH CTA significant for Inferolateral Ao Arch [...] AM Assessment & Plan (08/12/2018 7:47 PM VEGETABLE HARVEST WORKER): Presented to OSH with CP and SOB. OSH CT read notable for Inferolateral Ao Arch ulceration with plaque and pt tx to [facility] for surgical eval. -esmolol gtt for HR [...] BID. Assessment & Plan (08/12/2018 12:58 AM VEGETABLE HARVEST WORKER): Presented to OSH with CP and SOB. OSH CT read notable for Inferolateral Ao Arch ulceration with plaque and pt tx to [facility] for surgical eval. Arrives on no gtts with SBP 200s via NIBP. Pain free. Bilat radial pulses +2, Bilat pedal pulses +1. -Notify Vascular sx pt has arrived -place Right radial A-line -ensure [facility] radiology dept over reads OSH CT -esmolol gtt for HR goal 60-70 -nicardipine gtt for SBP goal < 120 -EKG on admit -NPO for now until plan confirmed with vascular surgery Memory impairment 11/29/2015 Overview (08/12/2018): Referred to Dr Foreign Hicks with [facility] 2yrs ago by PCP for [...] xanax. Assessment & Plan (08/15/2018 8:46 AM VEGETABLE HARVEST WORKER): Hx of pre-Alzheimer's and anxiety. Noncontrast head CT without acute intracranial abnormality. No agitation or confusion currently. - Continue Rifaximin for cirrhosis 2/2 Hep C. - Xanax 0.5mg QHS PRN. On home Xanax 1mg qHS. Assessment & Plan (08/15/2018 2:31 AM VEGETABLE HARVEST WORKER): Hx of pre-Alzheimer's and anxiety. Noncontrast head CT without acute intracranial abnormality. No agitation or confusion tonight. - continue Rifaximin for cirrhosis 2/2 Hep C. Will consider decreasing dose from bid to daily. - Xanax 0.5mg QHS PRN. On home Xanax 1mg qHS. Pt c/o dizziness overnight. Consider lowering dose if dizziness persist. Assessment & Plan (08/14/2018 8:59 AM VEGETABLE HARVEST WORKER): Hx of pre-Alzheimer's and anxiety. Noncontrast head CT without acute intracranial abnormality. No agitation or confusion overnight. - Rifaximin for cirrhosis 2/2 Hep C. Ammonia level normal on admission. - Xanax 0.5mg QHS PRN Assessment & Plan (08/14/2018 12:29 AM VEGETABLE HARVEST WORKER): Hx of pre-Alzheimer's and anxiety. Noncontrast head CT without acute intracranial abnormality. No agitation or confusion appreciated overnight. - Rifaximin for cirrhosis 2/2 Hep C. Ammonia level normal on admission. - Xanax 0.5mg QHS PRN Assessment & Plan (08/13/2018 9:23 AM VEGETABLE HARVEST WORKER): Hx of pre-Alzheimer's. Likely hyperactive delirium on [...] status Assessment & Plan (08/13/2018 4:15 AM VEGETABLE HARVEST WORKER): Hx of pre-Alzheimer's. Likely hyperactive delirium on [...] infection Assessment & Plan (08/12/2018 7:42 PM VEGETABLE HARVEST WORKER): Pt endorses frequent forgetfulness. States she lives with her son. Forgets to take medications. Pt also states her depression has been worse over the past 2 weeks. Ammonia checked overnight normal. Pt disoriented. Redirectable -rifaximin for liver cirrhosis 2/2 Hep C -frequent reorientation -f/u with social work regarding pt's home needs being met Assessment & Plan (08/12/2018 1:36 AM VEGETABLE HARVEST WORKER): Pt endorses frequent forgetfulness. States she lives [...] 08/15/2018 Assessment & Plan (08/15/2018 2:25 AM VEGETABLE HARVEST WORKER): Pt c/o dizziness this evening and reports that she also noticed on and off dizziness during the day today. Denies CP, nausea, vomiting, and syncope. May be medication related. Xanax, gabapentin, rifaximin can all cause dizziness. -discuss decreasing medication dosing with icu team in am Hypertensive emergency, no CHF 08/12/2018 08/13/2018 Assessment & Plan (08/13/2018 12:24 AM VEGETABLE HARVEST WORKER): Hx of HTN on home lisinopril. -Nicardipine gtt for SBP goal < 120 - Coreg 25 mg PO BID scheduled - Norvasc 5 mg PO Daily initiated overnight. Increase dosage as clinically indicated. Assessment & Plan (08/12/2018 1:37 AM VEGETABLE HARVEST WORKER): States SBP typically 160s. Reported to have received 20mg IVP labetelol at OSH X2. Arrived with SBP 200s via NIBP. Pt states he lisinopril was recently increased by PCP Dr Louisa Dutta in [place], [place]; however, she recently ran out of medication and has not taken her lisinopril for a couple of days. Endorses GRIMES, blurry vision, nausea and decreased appetite over the past 2 days. -place 2 large bore PIV now -labetelol 20mg IVP now -start nicardipine gtt for SBP goal < 120 Hypokalemia 08/12/2018 08/13/2018 Assessment & Plan (08/12/2018 3:09 AM VEGETABLE HARVEST WORKER): K 3.2 on admit. Likely 2/2 fluid loss -> Reported to have several emesis episodes today. Endorses decreased appetite for the past 3d. BM X 4 today -40meq PO KCl now Nausea & vomiting 08/12/2018 08/13/2018 Assessment & Plan (08/12/2018 7:40 PM VEGETABLE HARVEST WORKER): Intermittent nausea and vomiting. -zofran PRN -avoid compazine and phenergan d/t dementia/delirium -check lactate to r/o ischemic bowel Additional care: lactate normal Acute pain 08/11/2018 08/13/2018 Assessment & Plan (08/12/2018 7:38 PM VEGETABLE HARVEST WORKER): Denies pain at this time -if pt develops pain, ensure BP control and notify vascular surgery Assessment & Plan (08/12/2018 12:59 AM VEGETABLE HARVEST WORKER): Denies pain at this time -if pt develops pain, ensure BP control and notify vascular surgery Social History Tobacco Use Types Packs/Day Years Used Date Smoking Tobacco: Never Smokeless Tobacco: Never Alcohol Use Standard Drinks/Week Comments No 0 (1 standard drink = 0.6 oz pur e alcohol) Comments Unknown Sex and Gender Information Value Date Recorded Sex Assigned at Not on file Legal Sex Female 11:56 PM VEGETABLE HARVEST WORKER Gender Identity Not on file Sexual Orientation [...] 08/08/2024 2:52 PM CDT Plan of Treatment Not on file Insurance [facility] [place] [address] [facility] [place] [address] [facility] [employer] MEDICARE HMO Advance Directives For more information, please contact: [phone] * Full Code (Latest Code Status on File) Date Activated Date Inactivated Comments 08/11/2018 9:14 PM 08/17/2018 5:52 PM * Full Code Date Activated Date Inactivated Comments 01/15/2018 1:47 PM 01/15/2018 7:31 PM Care Teams Motorcycle Repairer Relationship Specialty [place] [address] [facility] [address] [place] [address] PCP - General 08/13/18
[2025-01-11 03:07] LABS: Basophils Percent Auto 0.4 % (0.2-1.2); Eosinophils Absolute Auto 0.1 K/mm3 (0-0.3); Hematocrit 39.1 % (37.0-47.0); Hemoglobin 13.2 g/dL (12.0-15.0); Immature Granulocyte Absolute 0.02 K/mm3 (0.00-0.031); Immature Granulocyte Percent A 0.3 % (0-0.5); Lymphocytes Percent Auto 32.5 % (18.3-44.2); Mean Corpuscular HGB Conc 33.8 g/dl (32-36); Mean Corpuscular Hemoglobin 31.8 pg (26-34); Mean Corpuscular Volume 94.2 fl (80-100); Mean Platelet Volume 10.1 fl (7.4-10.4); Monocytes Absolute Auto 0.8 K/mm3 (0.1-0.6); Monocytes Percent Auto 9.9 % (2.6-8.5); Neutrophils Absolute Auto 4.3 K/mm3 (1.3-6.7); Neutrophils Percent Auto 55.9 % (45.5-73.1); Platelet Count Result 251 k/mm3 (150-375); Red Blood Count 4.15 M/mm3 (4.2-5.4); Red Cell Distribution Width 12.4 % (11.5-14.5); White Blood Count 7.7 K/mm3 (4.5-10.0)
[2025-01-11 03:19] LABS: Alanine Aminotransferase 30 U/L (6-35); Albumin Level 4.6 g/dL (3.5-5.1); Alkaline Phosphatase 96 U/L (38-126); Anion Gap 16 mmol/L (4-12); Aspartate Amino Transferase 31 U/L (14-36); Bilirubin,Total 0.5 mg/dL (0.2-1.3); Blood Urea Nitrogen 17 mg/dL (7-17); Calcium 9.6 mg/dL (8.4-10.2); Carbon Dioxide 22 mmol/L (22-30); Chloride 103 mmol/L (98-107); Estimated CRCL calculation 34 ml/min; Estimated Glomerular Filt Rate > 60; Glucose 148 mg/dL (65-110); Sodium 141 mmol/L (137-145)
[2025-01-11 03:30] VITALS: BP 149/93; PULSE 87; RESP 16; O2SAT 99
[2025-01-11 03:49] LABS: Add Urine Microscopic? YES; Appearance Urine Clear (Clear); Bacteria Urine None Seen /hpf; Bilirubin Urine Negative (Negative); Blood Urine Negative (Negative); Color Urine Yellow (Yellow); Glucose Urine UA Negative (Negative); Ketones Urine Negative (Negative); Leukocyte Esterase Ur Negative LEU/UL (Negative); Need Manual Microscopic Reviewed; Nitrate Urine Negative (Negative); Non Pathogenic Casts 0-2; Protein Urine 2+ mg/dL (Negative); RBC Urine 0-2 /hpf (0-2); Specific Grav Ur 1.015 (1.001-1.035); Squamous Epithelial Cell Urine None Seen /hpf (Few); Urobilinogen Urine 0.2 mg/dL (<2.0); WBC Urine 0-5 /hpf (0-3)
[2025-01-11 03:57] LABS: Lipase 228 U/L (23-300); Magnesium 1.9 mg/dL (1.6-2.3)
[2025-01-11 04:11] LABS: Influenza A QL RT-PCR Negative (Negative); Influenza B QL RT-PCR Negative (Negative); RSV RNA, RT-PCR Negative (Negative); SARS-CoV-2 RNA PCR Negative (Negative)
[2025-01-11] MEDS: POTASSIUM BICARBONATE 25 MEQ TABEF 50 MEQ PO (04:15)
--- NOTE | 2025-01-11 04:27 | PC.NURSE ---
Attempted to call all 3 contacts listed for patient to be discharged, no answers.
--- NOTE | 2025-01-11 07:15 | PC.NURSE ---
Spoke with patient's son, Dominic, and he states he will call back after he gets a ride for the patient back home.
== END 2025-01-11 08:35 | disposition home or self-care (01) ==
PROVIDERS: Emergency Provider Student in an Organized Health Care Education/Training Program; PCP Family Medicine
DX: R06.02 Shortness of breath (principal); E87.6 Hypokalemia; E11.65 Type 2 diabetes mellitus with hyperglycemia; E11.22 Type 2 diabetes mellitus with diabetic chronic kidney disease; I12.9 Hypertensive chronic kidney disease with stage 1 through stage 4 chronic kidney disease, or unspecified chronic kidney disease; N18.30 Chronic kidney disease, stage 3 unspecified; Z20.822 Contact with and (suspected) exposure to COVID-19; F03.90 Unspecified dementia, unspecified severity, without behavioral disturbance, psychotic disturbance, mood disturbance, and anxiety; E11.51 Type 2 diabetes mellitus with diabetic peripheral angiopathy without gangrene; I73.9 Peripheral vascular disease, unspecified; B19.20 Unspecified viral hepatitis C without hepatic coma; E55.9 Vitamin D deficiency, unspecified; Z86.2 Personal history of diseases of the blood and blood-forming organs and certain disorders involving the immune mechanism; I49.1 Atrial premature depolarization; I45.10 Unspecified right bundle-branch block; Z90.710 Acquired absence of both cervix and uterus; R80.9 Proteinuria, unspecified
CPT/HCPCS: 36415; 71045; 80053; 81001; 83690; 83735; 85025; 87637; 93005; 99284; A9270